=== PATIENT | female | born 1965 | race Caucasian/White ===

== ENCOUNTER 2021-10-04 13:16 | Inpatient (IN) | payer BC ==
[~2021-10-04] VITALS: Ht 152.4 cm; Wt 68.0 kg
[~2021-10-04 13:16] MED LIST: AUGMENTIN 875-1 EACH PO; CLARITIN10 MG PO; DELSYM30 MG/5 ML PO; FLONASE 0.05% N16 GM; TAMIFLU75 MG PO
[2021-10-04 13:47] LABS: HEMOGLOBIN 15.7 gm/dl (12.3-15.3); RED BLOOD COUNT 5.25 M/UL (4.00-5.10)
[2021-10-04 14:26] LABS: BUN/CREATININE RATIO 19 (0-10)
[2021-10-05 07:29] LABS: RED BLOOD COUNT 5.25 M/UL (4.00-5.10)
[2021-10-05 07:49] LABS: BUN/CREATININE RATIO 27 (0-10)
[2021-10-05 11:01] LABS: BORDETELLA PARAPERTUSSIS Not Detected (Not Detectd); BORDETELLA PERTUSSIS Not Detected (Not Detectd); CHLAMYDIA PNEUMONIAE Not Detected (Not Detectd); CORONAVIRUS HKU1 Not Detected (Not Detectd); CORONAVIRUS NL63 Not Detected (Not Detectd); CORONAVIRUS OC43 Not Detected (Not Detectd); CORONOAVIRUS 229E Not Detected (Not Detectd); HUMAN METAPNEUMOVIRUS Not Detected (Not Detectd); HUMAN RHINOVIRUS/ENTEROVIRUS Not Detected (Not Detectd); INFLUENZA A Not Detected (Not Detectd); INFLUENZA B Not Detected (Not Detectd); MYCOPLASMA PNEUMONIAE Not Detected (Not Detectd); PARAINFLUENZA VIRUS 1 Not Detected (Not Detectd); PARAINFLUENZA VIRUS 2 Not Detected (Not Detectd); PARAINFLUENZA VIRUS 3 Not Detected (Not Detectd); PARAINFLUENZA VIRUS 4 Not Detected (Not Detectd); RESPIRATORY SYNCYTIAL VIRUS Not Detected (Not Detectd)
[2021-10-05 12:00] LABS: SARS-CoV-2 NOT DETECTED (Not Detectd)
[2021-10-05 15:11] LABS: WHITE BLOOD COUNT 19.8 K/UL (4.5-11.0)
[2021-10-06 07:08] LABS: HEMOGLOBIN 14.6 gm/dl (12.3-15.3); RED BLOOD COUNT 4.91 M/UL (4.00-5.10)
[2021-10-06 07:10] LABS: WHITE BLOOD COUNT 27.6 K/UL (4.5-11.0)
[2021-10-06 07:47] LABS: BUN/CREATININE RATIO 42 (0-10)
--- NOTE | 2021-10-06 10:16 | NUR ---
PT OXYGEN SAT 92-95 ON ROOM AIR WHILE AMBULATING
[2021-10-06] MEDS ORDERED: ALBUTEROL2.5 MG/3 M INH (10:23)
[2021-10-06] MEDS ORDERED: PROVENTIL HFA6.7 GM INH (10:24)
[2021-10-06] MEDS ORDERED: PREDNISONE10 MG PO (10:27)
[2021-10-06 11:15] LABS: ALPHA-1-ANTITRYPSIN, SERUM 197 mg/dL (101-187)
== END 2021-10-06 11:27 | disposition home or self-care (01) | DRG 189 ==
LOC: ER1 13:16 → PROG CARE 15:17 → CDU 15:17 → PROG CARE 16:39
PROVIDERS: Emergency Medicine; Internal Medicine; Nurse Practitioner Family; Physician Assistant; ADMIT Internal Medicine
PROC: 5A09357 Assistance with Respiratory Ventilation, Less than 24 Consecutive Hours, Continuous Positive Airway Pressure (ICD-10-PCS; principal; 2021-10-04)
PROC: 5A09357 Assistance with Respiratory Ventilation, Less than 24 Consecutive Hours, Continuous Positive Airway Pressure (ICD-10-PCS; 2021-10-05)
PROC: 5A09357 Assistance with Respiratory Ventilation, Less than 24 Consecutive Hours, Continuous Positive Airway Pressure (ICD-10-PCS; 2021-10-06)
DX: J96.21 Acute and chronic respiratory failure with hypoxia (principal); J45.901 Unspecified asthma with (acute) exacerbation; Z20.822 Contact with and (suspected) exposure to COVID-19; J96.22 Acute and chronic respiratory failure with hypercapnia; J44.9 Chronic obstructive pulmonary disease, unspecified; D72.828 Other elevated white blood cell count; T38.0X5A Adverse effect of glucocorticoids and synthetic analogues, initial encounter; D75.839 Thrombocytosis, unspecified; J30.9 Allergic rhinitis, unspecified; D75.1 Secondary polycythemia; I25.10 Atherosclerotic heart disease of native coronary artery without angina pectoris; Z82.49 Family history of ischemic heart disease and other diseases of the circulatory system; Z82.5 Family history of asthma and other chronic lower respiratory diseases
CPT/HCPCS: 36415; 36600; 71045; 80053; 81001; 82103; 82104; 82785; 82803; 83036; 83605; 83735; 83880; 84484; 85025; 85027; 87040; 87633; 93005; 94640; 94660; 94664; 94760; 96374; 96375; 99285; J0456; J1650; J2405; J2920; J2930; J7030; U0002

== ENCOUNTER → 2021-10-27 | Outpatient (CLI) | payer BC ==
[~2021-10-27] MED LIST changes: +ALBUTEROL2.5 MG/3 M INH; +PREDNISONE10 MG PO; +PROVENTIL HFA6.7 GM INH
== END ==
LOC: HEART 5 09:30
DX: R06.02 Shortness of breath (principal)
CPT/HCPCS: 94060; 94729; 95012

== ENCOUNTER → 2021-10-27 | Outpatient (CLI) | payer BC ==
[2021-10-27 12:22] LABS: HEMOGLOBIN 14.6 gm/dl (12.3-15.3); RED BLOOD COUNT 4.9 M/UL (4.00-5.10); WHITE BLOOD COUNT 10.5 K/UL (4.5-11.0)
== END ==
LOC: LAB 11:19
PROVIDERS: Internal Medicine Pulmonary Disease
DX: J45.40 Moderate persistent asthma, uncomplicated (principal)
CPT/HCPCS: 36415; 85025